=== PATIENT | female | born 1960 | race American Indian/Alaskan Native ===

== ENCOUNTER 2018-07-15 13:04 | Outpatient (CLI) | payer OTHER ==
--- NOTE | 2018-07-15 16:20 | Cat Scan Report ---
FINAL REPORT EXAM: CT ABDOMEN PELVIS WO CON HISTORY: LOWER ABDOMINAL PAIN COMPARISON: None. TECHNIQUE: Multiple contiguous axial images were obtained from the lung bases to the pubic symphysis without administration of IV contrast. Reformatted sagittal and coronal images were available for review. FINDINGS: Lung bases: Areas of ground-glass opacity in the bilateral lower lobes, likely reflective of atelectasis Visualized heart and mediastinum: Normal noncontrast appearance. Liver: Normal noncontrast appearance. Spleen: Normal noncontrast appearance. Pancreas: Normal noncontrast appearance. Gallbladder and Biliary Tree: No calcified gallstones. No biliary ductal dilatation. Adrenal glands: Normal. Kidneys: Normal. No renal or ureteral calcifications. No hydronephrosis. Bladder: Normal. Pelvic organs: The uterus has been surgically removed. Bowel: No evidence of obstruction. Oral contrast advances to the proximal transverse colon. There diverticulosis of the colon without evidence of diverticulitis. Peritoneum: No significant mesenteric adenopathy. No free air or free fluid. Vasculature: Abdominal aorta is normal in caliber without evidence of aneurysm. Normal noncontrast appearance of the portal venous system and the inferior vena cava. Bones and soft tissues: No suspicious osseous lesions. No acute fracture or dislocation. Soft tissues are normal. IMPRESSION: No acute intra-abdominal pathology. No evidence of bowel obstruction. Diverticulosis of the colon without evidence for diverticulitis.
== END 2018-07-15 13:05 | disposition home or self-care (01) ==
LOC: CT 13:04
PROVIDERS: ATTEND Internal Medicine
DX: K57.30 Diverticulosis of large intestine without perforation or abscess without bleeding (principal)
CPT/HCPCS: 74176

== ENCOUNTER 2019-04-27 08:40 | Outpatient (CLI) | payer OTHER ==
[2019-04-30 13:47] LABS: Vitamin D, 25-OH, D2 <4 ng/mL
== END 2019-04-27 08:41 | disposition home or self-care (01) ==
LOC: LAB 08:40
PROVIDERS: ATTEND Internal Medicine
DX: E55.9 Vitamin D deficiency, unspecified (principal); E11.9 Type 2 diabetes mellitus without complications
CPT/HCPCS: 36415; 82306; 83036

== ENCOUNTER 2019-08-11 11:00 | Outpatient (CLI) | payer OTHER | END 2019-08-11 11:01 | disposition home or self-care (01) | LOC: SLR 11:00 | PROVIDERS: ATTEND Otolaryngology | DX: G47.30 Sleep apnea, unspecified (principal) | CPT/HCPCS: G0399 ==